=== PATIENT | male | born 1995 | race Caucasian/White ===

== ENCOUNTER 2017-06-08 12:05 | Emergency (ER) | payer SELFPAY ==
[2017-06-08] MEDS ORDERED: SULFAMETHOX-TMP DS 800/160 TAB ONE (12:57)
[2017-06-08] MEDS ORDERED: IBUPROFEN 600 MG TABLET ONE (12:58)
== END 2017-06-08 13:25 | disposition home or self-care (01) ==
LOC: EDH 12:05
DX: L02.31 Cutaneous abscess of buttock (principal); Z72.0 Tobacco use

== ENCOUNTER 2017-06-08 17:31 | Emergency (ER) | payer SELFPAY | END 2017-06-08 18:50 | disposition home or self-care (01) | LOC: EDH 17:31 | DX: L02.31 Cutaneous abscess of buttock (principal); Z72.0 Tobacco use | CPT/HCPCS: 10060 ==